=== PATIENT | female | born 1995 | race Caucasian/White ===

== ENCOUNTER 2020-02-27 16:12 | Outpatient (CLI) | payer OTHER ==
--- NOTE | 2020-02-27 17:00 | Non Stress Test Report ---
Non Stress Test Datetime Report Generated by CPN: 02/27/2020 17:00 DEMOGRAPHIC EGA NST: 40.5 INDICATION Indication for Study (NST) Other: Repeat NST VITAL SIGNS Temperature - NST: 98.3 Pulse - NST: 103 RESP - NST: 18 NBPSYS NST: 111 NBPDIA NST: 83 MONITORING Monitor Explained: Monitor Explained; Test Explained; Patient Verbalized Understanding Time on Monitor: 02/27/2020 16:26 Time off Monitor: 02/27/2020 16:46 NST Duration: 20 NST INTERVENTIONS NST Interventions: PO Hydration Physician Notified NST: Elaina Rosario CNM BABY A: [id number] Movement : Present Contraction Frequency : 2-4 FHR Baseline : 125 Accelerations : 15X15 Decelerations : None Variability : Moderate 6-25bpm NST Review: Meets Criteria for Reactive NST NST Review and Verified By : Lili Corey RN/Elaina Arriaza RN NST Results: Reactive NST REPORT Report Trigger: Send Report
== END 2020-02-27 17:30 | disposition home or self-care (01) ==
LOC: LC 16:12
PROVIDERS: ATTEND Obstetrics & Gynecology Gynecology
DX: O47.1 False labor at or after 37 completed weeks of gestation (principal); O48.0 Post-term pregnancy; Z3A.40 40 weeks gestation of pregnancy
CPT/HCPCS: 84112

== ENCOUNTER 2020-03-01 11:58 | Inpatient (IN) | payer OTHER ==
[2020-03-01 12:23] LABS: APPEARANCE,URINE SLIGHTLY-CLOUDY; BILIRUBIN,URINE NEGATIVE (NEGATIVE); COLOR,URINE YELLOW; GLUCOSE, URINE NEGATIVE (NEGATIVE); KETONES,URINE NEGATIVE (NEGATIVE); LEUKOCYTE ESTERASE,URINE LARGE (NEGATIVE); NITRITE,URINE NEGATIVE (NEGATIVE); PROTEIN,URINE NEGATIVE (NEGATIVE); URINE SPECIFIC GRAVITY 1.005; UROBILINOGEN,URINE NEGATIVE mg/dL (<2.0)
[2020-03-01 12:42] LABS: URINE AMPHETAMINES SCREEN NEGATIVE; URINE BARBITURATES SCREEN NEGATIVE; URINE BENZODIAZEPINES SCREEN NEGATIVE; URINE COCAINE SCREEN NEGATIVE; URINE MARIJUANA (THC) SCREEN NEGATIVE; URINE METHADONE SCREEN NEGATIVE; URINE PHENCYCLIDINE SCREEN NEGATIVE
[2020-03-01] MEDS ORDERED: PENICILLIN G POTASSIUM 5,000,000 UNIT in DEXTROSE 5%-WATER 100 ML IV ONE (12:49)
[2020-03-01] MEDS ORDERED: RINGERS SOLUTION,LACTATED 1,000 ML IV PRN (12:49)
[2020-03-01] MEDS ORDERED: OXYTOCIN/0.9 % SODIUM CHLORIDE 30 UNIT/500 ML RTUINJ IV PRN ×2 (12:51→18:22)
[2020-03-01] MEDS ORDERED: OXYTOCIN 10 UNIT/ML VIAL ONE (13:09)
[2020-03-01] MEDS ORDERED: MISOPROSTOL 0.2 MG TABLET ONE (13:10)
[2020-03-01] MEDS ORDERED: LIDOCAINE 1% INJ-PF (10 MG/ML) 30 ML SDV ONE (13:10)
[2020-03-01] MEDS ORDERED: PENICILLIN G-K 5 MILLION UNIT VIAL ONE ×2 (13:10→16:56)
[2020-03-01] MEDS ORDERED: OXYTOCIN/0.9 % SODIUM CHLORIDE 30 UNIT/500 ML RTUINJ ONE (13:10)
[2020-03-01 13:45] LABS: ABSOLUTE EOSINOPHILS # (AUTO) 0.1 10^3/uL (0.0-0.6); ABSOLUTE LYMPHOCYTES (AUTO) 2.9 10^3/uL (0.5-4.7); ABSOLUTE NEUT (AUTO) 9.2 10^3/uL (1.7-8.2); BASOPHILS % (AUTO) 0.3 % (0-2); EOSINOPHILS % (AUTO) 0.6 % (0-6); HEMOGLOBIN 10.1 g/dL (12.0-15.5); MEAN CORPUSCULAR HEMOGLOBIN 25.7 pg (27.0-33.4); MEAN CORPUSCULAR HGB CONC 33.8 g/dL (32.0-36.0); MEAN CORPUSCULAR VOLUME 76 fl (80-97); MONOCYTES % (AUTO) 7.4 % (3-13); PLATELET COUNT 277 10^3/uL (150-450); RED BLOOD COUNT 3.93 10^6/uL (3.72-5.28); SEGMENTED NEUTROPHILS % (AUTO) 69.7 % (42-78); TOTAL CELLS COUNTED % (AUTO) 100 %; WHITE BLOOD COUNT 13.2 10^3/uL (4.0-10.5)
[2020-03-01] MEDS ORDERED: ONDANSETRON HCL INJ/PF 4 MG/2 ML SDV IV ONE (13:48)
[2020-03-01] MEDS ORDERED: ONDANSETRON HCL INJ/PF 4 MG/2 ML SDV ONE (13:51)
[2020-03-01] MEDS ORDERED: ROPIVACAINE HCL 0.2% INJ/PF (2 MG/ML) 20 ML SDV ONE (15:43)
[2020-03-01] MEDS ORDERED: EPHEDRINE SULFATE INJ 50 MG/1 ML AMPULE ONE (15:43)
[2020-03-01] MEDS ORDERED: FENTANYL/BUPIVACAINE/NS/PF 300 MCG/150 ML RTUINJ EPI ONE (15:43)
[2020-03-01] MEDS ORDERED: FENTANYL CITRATE INJ/PF 100 MCG/2 ML AMPUL ONE (15:43)
--- NOTE | 2020-03-01 16:36 | Admission Physical ---
Datetime Report Generated by CPN: 03/01/2020 16:36 CURRENT ADMISSION Chief Complaint: Uterine Contractions Indication for Induction: Not Applicable Admit Impression : Term, Intrauterine ; Ruptured Membranes Admit Plan: Admit to Unit ALLERGIES Medication Allergies: No Medication Allergies: No Known Allergies (02/27/2020) Latex: No Latex Allergies OBSTETRICAL HISTORY EDC: 02/22/2020 00:00 : 2 Para: 1 Term: 1 : 0 SAB: 0 IAB: 0 Ectopic: 0 Livin Cesareans: 0 VBACs: 0 Multiple Births: 0 Gestational Diabetes: No Rh Sensitization: No Incompetent Cervix: No HEIDY: No Infertility: No ART Treatment: No Uterine Anomaly: No IUGR: No Hx Previous C/S: No Macrosomia: No Hx Loss/Stillborn: No PIH: No Hx : No Placenta Previa/Abruption: No Depression/PP Depression: No PTL/PROM: No Post Hemorrhage: No Obstetrical History Comments: G1: 39 wks, 8lbs 1 oz, vag male SEE RECORDS Alcohol: No Marijuana : No Cocaine: No Other Illicit Drugs: No Cigarettes: Never Smoker. [id number] MEDICAL HISTORY Diabetes: No Blood Transfusion: No Pulmonary Disease (Asthma, TB): No Breast Disease: No Hypertension: No Display Coordinator Surgery: No Heart Disease: No Hosp/Surgery: No Autoimmune Disorder: No Anesthetic Complications: No Kidney Disease: No Abnormal Pap Smear: No Neuro/Epilepsy: No Psychiatric Disorders: No Other Medical Diseases: No Hepatitis/Liver Disease: No Significant Family History: No Varicosities/Phlebitis: No Trauma/Violence : No Thyroid Dysfunction: No INFECTIOUS HISTORY Gonorrhea: No Genital Herpes: No Chlamydia: No Tuberculosis: No Syphilis: No Hepatitis: No HIV/AIDS Exposure: No Rash or Viral Illness: No HPV: No PHYSICAL EXAM General: Normal HEENT: Normal Neurologic: Normal Thyroid: Normal Heart: Normal Lungs: Normal Breast: Deferred Back: Normal Abdomen: Normal Genitourinary Exam: Normal Extremities: Normal DTRs: Normal Pelvic Type: Adequate Vital Signs: Reviewed VAGINAL EXAM Dilatation: 6 Effacement: 80 Station: 0 MEMBRANES Pooling: Positive Membranes: Ruptured FETUS A EGA: 41.1 Monitoring: External US FHR- Baseline: 120 Variability: Moderate 6-25bpm Decelerations: None FHR Category: Category I Estimated Weight (gm): 4280 Presentation: Vertex Admit Comment: admit for labor. not GDM PLANS FOR LABOR AND DELIVERY Labor and Delivery: None Pain Management: Medications; Epidural Feeding Preference: Breast Benefit of Breast Feed Discussed: Yes Circumcision: Yes INFORMED CONSENT Signature: with User ID: [email or web address]
[2020-03-01] MEDS ORDERED: PENICILLIN G POTASSIUM 2,500,000 UNIT in DEXTROSE 5%-WATER 50 ML IV SCH ×4 (16:50)
[2020-03-01] MEDS ORDERED: MEASLES,MUMPS&RUBELLA VACC/PF 0.5 ML VIAL SUBCUT PRN (18:22)
[2020-03-01] MEDS ORDERED: DIBUCAINE 1% OINTMENT 28 GM TP PRN (18:22)
[2020-03-01] MEDS ORDERED: DIPH/PERTUSS(ACELL)/TETANUS VAC/PF 0.5 ML SYR (>=10YO) IM PRN (18:22)
[2020-03-01] MEDS ORDERED: PROMETHAZINE HCL 25 MG SUPP.RECT PR PRN (18:22)
[2020-03-01] MEDS ORDERED: ACETAMINOPHEN 650 MG SUPP.RECT PR PRN (18:22)
[2020-03-01] MEDS ORDERED: ACETAMINOPHEN WITH CODEINE #3 TABLET PO PRN ×2 (18:22)
[2020-03-01] MEDS ORDERED: PROMETHAZINE HCL 25 MG TABLET PO PRN (18:22)
[2020-03-01] MEDS ORDERED: PROMETHAZINE HCL INJ 25 MG/1 ML VIAL IV PRN (18:22)
[2020-03-01] MEDS ORDERED: DIPHENHYDRAMINE HCL 25 MG CAPSULE PO PRN (18:22)
[2020-03-01] MEDS ORDERED: MAGNESIUM HYDROXIDE SUSP 30 ML UDCUP PO PRN (18:22)
[2020-03-01] MEDS ORDERED: BENZOCAINE/MENTHOL AEROSOL SPRAY 56 ML TOP PRN (18:22)
[2020-03-01] MEDS ORDERED: ZOLPIDEM TARTRATE 5 MG TABLET PO PRN (18:22)
[2020-03-01] MEDS ORDERED: GLYCERIN/WITCH HAZEL LEAF 1 EACH MED..WIPE TP PRN (18:22)
[2020-03-01] MEDS ORDERED: NA PHOS,M-B/NA PHOS,DI-BA (ADULT) 133 ML ENEMA PR PRN (18:22)
[2020-03-01] MEDS ORDERED: PSEUDOEPHEDRINE HCL 30 MG TABLET PO PRN (18:22)
--- NOTE | 2020-03-01 18:25 | Warning Signs in Babies ---
VOD Warning Signs Datetime Report Generated by [facility]: 03/01/2020 18:25 VOD#[id number] -Warning Signs in Babies: Needs to be viewed. (02/27/2020 16:32:Rianna Michele RN)
[2020-03-01] MEDS ORDERED: BENZOCAINE/MENTHOL AEROSOL SPRAY 56 ML ONE (18:39)
--- NOTE | 2020-03-01 20:08 | Delivery Summary ---
Del Sum A-C Datetime Report Generated by CPN: 03/01/2020 20:07 DELIVERY PERSONNEL DELIVERY PERSONNEL: [id number] Delivery Doctor:: Zachary Thomson MD Labor and Delivery Nurse:: Roya Hutchinson RNscalping machine operator Nurse:: Mansi Johnson RN Fire Patroller/LICENSE AND PERMIT SPECIALIST: Denise Gutiérrez CST Fire Patroller/LICENSE AND PERMIT SPECIALIST: Milagros Waldron CST Additional Personnel: : Rianna Michele RN MATERNAL INFORMATION Delivery Anesthesia: Epidural Medications After Delivery: Pitocin 30 Units in 500ml NS/D5W Delivery QBL: 250 Maternal Complications: None LABOR SUMMARY EDC: 02/22/2020 00:00 No. Babies in Womb: 1 Attempted: No Labor Anesthesia: Epidural LABOR INFORMATION Reason for Induction: Not Applicable Onset of Labor: 03/01/2020 16:15 Complete Dilatation: 03/01/2020 17:55 Oxytocin: Augmentation Group B Beta Strep: Positive Antibiotics # of Doses: 2 Antibiotics Time of Last Dose: 03/01/2020 17:04 Name of Antibiotic Given: PCN Steroids Given: None Reason Steroids Not Administered: Not Applicable MEMBRANES Membranes Rupture Method: Spontaneous Rupture of Membranes: 03/01/2020 09:30 Length of Rupture (hr): 8.58 Amniotic Fluid Color: Clear Amniotic Fluid Amount: Moderate Amniotic Fluid Odor: None STAGES OF LABOR Stage 1 hr: 1 Stage 1 min: 40 Stage 2 hr: 0 Stage 2 min: 10 Stage 3 hr: 0 Stage 3 min: 4 Total Time in Labor hr: 1 Total Time in Labor min: 54 VAGINAL DELIVERY Episiotomy: None Laceration #1: Perineal Laceration Extension #1: Second Degree Laceration #2: None Laceration Extension #2: N/A Laceration #3: None Laceration Extension #3: N/A Laceration Repair: Yes Laceration Repair Note: repair of second degree perineal laceration with 3-0 chromic in usual fashion. Sponge Count Correct: Yes Sharps Count Correct: Yes CSECTION DELIVERY Primary Indication: N/A Secondary Indication: N/A CSection Incidence: N/A Labor: N/A Elective: N/A CSection Incision: N/A BABY A INFORMATION Infant Delivery Date/Time: 03/01/2020 18:05 Method of Delivery: Vaginal Nurse Controlled Delivery: No Born in Route : No : N/A Forceps: N/A Vacuum Extraction: N/A Shoulder Dystocia : No PRESENTATION/POSITION BABY A Presentation: Cephalic Cephalic Presentation: Vertex Vertex Position: Left Occipital Anterior Breech Presentation: N/A PLACENTA INFORMATION BABY A Placenta Delivery Time : 03/01/2020 18:09 Placenta Method of Delivery: Spontaneous Placenta Status: Delivered SCORES BABY A Heart Rate 1 min: >100 bpm Resp Effort 1 min: Good Cry Reflex Irritability 1 min: Cough or Sneeze or Pulls Away Muscle Tone 1 min: Active Motion Color 1 min: Blue/Pale Resuscitation Effort 1 min: Tactile Stimulation SCORE 1 MIN: 8 Heart Rate 5 min: >100 bpm Resp Effort 5 min: Good Cry Reflex Irritability 5 min: Cough or Sneeze or Pulls Away Muscle Tone 5 min: Active Motion Color 5 min: Body Devers, Extremities Blue Resuscitation Effort 5 min: Tactile Stimulation SCORE 5 MIN: 9 INFORMATION BABY A Gestational Age at Delivery: 41.1 Gestational Status: Late Term- 41- 41.6 Weeks Outcome : Liveborn Infant Condition : Stable Infant Sex: Male IDENTIFICATION BABY A Verification Date/Time: 03/01/2020 18:14 ID Band Number: [id number] Mother's Name Verified: Yes Infant RN Verifying : CMel Stevens[place]au[place] RN ; BMel Johnson RN WEIGHT/LENGTH BABY A Birthweight (gm): 3937 Weight (lb): 8 Infant Weight (oz): 11 Length (in): 20.50 Infant Length (cm): 52.07 CORD INFORMATION BABY A No. Cord Vessels: 3 Nuchal Cord : Around Neck x1, Loose Cord Blood Taken: Yes-For Eval (Mom's Blood Type - or O+) Infant Suction: None ASSESSMENT BABY A Infant Complications: None Physical Findings at Delivery: Within Normal Limits Respirations: Appears Normal Skin to Skin: Yes Office Assistant/ALS Called : No Care By: B Baidy RN Transferred To: Remains with Mother BABY B INFORMATION : N/A SIGNATURES Signature: with User ID: [email or web address]
--- NOTE | 2020-03-01 20:08 | Birth Certificate Data ---
Cert Data Datetime Report Generated by CPFani: 03/01/2020 20:07 CERTIFICATE DATA 47a. Care: Yes (02/27/2020 16:32:Roya Hutchinson RN) 47b. Date of First Visit: 07/19/2019 00:00 (02/27/2020 16:32:Roya Hutchinson RN) 47c. Date of Last Visit: 02/27/2020 00:00 (02/27/2020 16:32:Roya Hutchinson RN) 47d. Number of Visits: 14 (02/27/2020 16:32:Roya Hutchinson RN) 48a. Number of Prev Live Births: 1 (02/27/2020 16:32:Soila Corey RN) 48b. Now Livin (02/27/2020 16:32:Soila Corey RN) 48c. Live Births Now : 0 (02/27/2020 16:32:QS system process) 48d. Date of Last Live : 09/06/2018 00:00 (02/27/2020 16:32:Roya Hutchinson RN) 48e. Losses: 0 (02/27/2020 16:32:Roya Hutchinson RN) RISK FACTORS IN THIS 49a. Diabetes: No (02/27/2020 16:32:Roya Hutchinson RN) 49b. Hypertension: No (02/27/2020 16:32:Roya Hutchinson RN) 49c. Previous Births: 0 (02/27/2020 16:32:Soila Corey RN) 49d. Stillborns: No (02/27/2020 16:32:Roya Hutchinson RN) 49d. IUGR: No (02/27/2020 16:32:Roya Hutchinson RN) 49e. Infertility Treatment: No (02/27/2020 16:32:Roya Hutchinson RN) 49f. Previous Cesareans: 0 (02/27/2020 16:32:Soila Corey RN) Mother's Height 50b. Height Inches: 64 (03/01/2020 12:06:QS system process) Mother's Weight 51a. Pre- Weight (lbs): 117 (02/27/2020 16:32:Roya Hutchinson RN) 51b. Weight at Delivery (lbs): 143 (03/01/2020 12:06:QS system process) 52. Dt Last Normal Menses Began: 05/18/2019 00:00 (02/27/2020 16:32:Soila Corey RN) Infections Present/Treated 53a. Gonorrhea: No (02/27/2020 16:32:Roya Hutchinson RN) Results this Hospital Visit : Negative (02/27/2020 16:32:Soila Corey RN) 53b. Syphilis: No (02/27/2020 16:32:Roya Hutchinson RN) 53c. Chlamydia: No (02/27/2020 16:32:Roya Hutchinson RN) Results this Hospital Visit: Negative (02/27/2020 16:32:Soila Corey RN) 53d. Hepatitis B: No (02/27/2020 16:32:Roya Hutchinson RN) Results this Hospital Visit: Negative (02/27/2020 16:32:Soila Corey RN) 53e. Hepatitis C: Negative (02/27/2020 16:32:Roya Hutchinson RN) 53h. Mother Tested for HBsAG: Yes (02/27/2020 16:32:Roya Hutchinson RN) 53i. Date Tested: 07/19/2019 00:00 (02/27/2020 16:32:Roya Hutchinson RN) 53j. Test Result: Negative (02/27/2020 16:32:Soila Corey RN) Cigarette Smoking Cigarette Smoking: Never Smoker. [id number] (02/27/2020 16:32:Roya Hutchinson RN) Onset of Labor 56a. PROM >12 Hrs: 8.58 (02/27/2020 16:32:QS system process) 56b. Precipitous Labor <3 Hrs: 1 (02/27/2020 16:32:QS system process) 56c. Prolonged Labor > 20 Hrs: 1 (02/27/2020 16:32:QS system process) 57a. Induction of Labor: Augmentation (02/27/2020 16:32:Rianna Michele RN) 57c. Non-Vertex Presentation A: Vertex (02/27/2020 16:32:Rianna Michele RN) 57d. Steroids - Lung Mat: None (02/27/2020 16:32:Rianna Michele RN) 57d. Steroids - Lung Mat: Not Applicable (02/27/2020 16:32:Rianna Michele RN) 57e. Antibiotics During Labor: 03/01/2020 17:04 (02/27/2020 16:32:Mansi Johnson RN) 57g. Moderate/Heavy Meconium: Clear (02/27/2020 16:32:Roya Hutchinson RN) 57h. Intolerance of Labor: N/A (02/27/2020 16:32:Rianna Michele RN) : N/A (02/27/2020 16:32:Rianna Michele RN) 57i. Epidural/Spinal Anesthesia: Epidural (02/27/2020 16:32:Rianna Michele RN) Method of Delivery 58a. Forceps - Unsuccessful A: N/A (02/27/2020 16:32:Rianna Michele RN) 58b. Vacuum - Unsuccessful A: N/A (02/27/2020 16:32:Rianna Michele RN) 58c. Presentation at 58c. Presentation at - A : Vertex (02/27/2020 16:32:Rianna Michele RN) 58c. Presentation at - A : N/A (02/27/2020 16:32:Rianna Michele RN) 58c. Presentation at - A : Cephalic (03/01/2020 16:15:Roya Hutchinson RN) Final Route and Method of Del 58d. Baby A Route/Delivery: Vaginal (03/01/2020 18:04:Roya Hutchinson RN) 58e. Trial of Labor Attempted: No (02/27/2020 16:32:Rianna Michele RN) 58e. Trial of Labor Attempted A: N/A (02/27/2020 16:32:Rianna Michele RN) 58e. Trial of Labor Attempted B: N/A (02/27/2020 16:32:Rianna Michele RN) Maternal Morbidity 59b. 3rd or 4th Degree Lacs: Perineal (02/27/2020 16:32:Rianna Michele RN) Birthweight Baby A: 3937 (02/27/2020 16:32:Paula Lubin RN) 60a. Pounds : 8 (02/27/2020 16:32:QS system process) 60b. Ounces: 11 (02/27/2020 16:32:QS system process) 61. GA at Delivery Baby A: 41.1 (02/27/2020 16:32:Riannakaren Michele RN) : Late Term- 41- 41.6 Weeks (02/27/2020 16:32:QS system process) 62a. 5 Minute Baby A: 9 (02/27/2020 16:32:QS system process)
[2020-03-01] MEDS: IBUPROFEN 800 MG TABLET PO SCH (22:20)
[2020-03-01] MEDS: FAMOTIDINE 20 MG TABLET PO SCH (22:21)
[2020-03-02 06:28] LABS: HEMATOCRIT 26.1 % (36.0-47.0); HEMOGLOBIN 8.8 g/dL (12.0-15.5); MEAN CORPUSCULAR HEMOGLOBIN 25.8 pg (27.0-33.4); MEAN CORPUSCULAR HGB CONC 33.7 g/dL (32.0-36.0); MEAN CORPUSCULAR VOLUME 77 fl (80-97); PLATELET COUNT 248 10^3/uL (150-450); RED BLOOD COUNT 3.41 10^6/uL (3.72-5.28); WHITE BLOOD COUNT 13.3 10^3/uL (4.0-10.5)
[2020-03-02] MEDS: IBUPROFEN 800 MG TABLET PO SCH ×3 (06:32→21:09)
[2020-03-02] MEDS: FAMOTIDINE 20 MG TABLET PO SCH ×2 (09:14→21:11)
[2020-03-02] MEDS: SENNOSIDES/DOCUSATE 8.6-50 MG 1 EACH TABLET PO SCH (09:14)
[2020-03-02] MEDS: DOCUSATE SODIUM 100 MG CAPSULE PO SCH ×2 (09:14→17:04)
[2020-03-02] MEDS: FERROUS SULFATE 325 MG TABLET PO SCH ×2 (09:14→17:04)
[2020-03-02] MEDS: PRENATAL VITAMIN W DHA CAPSULE PO SCH (09:14)
--- NOTE | 2020-03-02 09:57 | PDOC PROGRESS REPORT ---
Subjective-OB Progress Note for:: 03/02/20 Subjective: Pt doing well, no concerns. She reports light bleeding, reg diet and voiding w/o difficulty. Physical Exam (OB) Vital Signs: Temp Pulse Resp BP Pulse Ox 99.0 F 72 18 108/56 L 98 03/02/20 08:07 03/01/20 21:07 03/01/20 21:07 03/01/20 21:07 03/01/20 21:07 Intake & Output 03/01/20 03/02/20 03/03/20 06:59 06:59 06:59 Intake Total 1600 Output Total 1000 Balance 600 Weight 65 kg - PIH/Pre-Eclampsia Headache: Absent Epigastric Pain: No Visual Changes: No - Maternal Morbidity 59. Maternal Morbidity (serious complications experinced by the mother associated with labor and delivery: None of the above - Lochia Lochia Amount: Small 10-25 ml Lochia Color: Rubra/Red - Abdomen Description: Soft, Round Fundal Description: Firm, Non-Midline Fundal Height: u/u - u/2 Objective-Diagnostic Laboratory: 03/02/20 06:18 03/01/20 03/01/20 03/01/20 12:06 13:12 13:12 WBC 13.2 H RBC 3.93 Hgb 10.1 L Hct 30.0 L MCV 76 L MCH 25.7 L MCHC 33.8 RDW 17.0 H Plt Count 277 Seg Neutrophils % 69.7 Urine Color YELLOW Urine Appearance SLIGHTLY-CLOUDY Urine pH 7.0 Ur Specific [place] 1.005 Urine Protein NEGATIVE Urine Glucose (UA) NEGATIVE Urine Ketones NEGATIVE Urine Blood LARGE H Urine Nitrite NEGATIVE Ur Leukocyte Esterase LARGE H Blood Type AB NEGATIVE Antibody Screen NEGATIVE 03/02/20 06:18 WBC 13.3 H RBC 3.41 L Hgb 8.8 L Hct 26.1 L MCV 77 L MCH 25.8 L MCHC 33.7 RDW 17.0 H Plt Count 248 Seg Neutrophils % Urine Color Urine Appearance Urine pH Ur Specific [place] Urine Protein Urine Glucose (UA) Urine Ketones Urine Blood Urine Nitrite Ur Leukocyte Esterase Blood Type Antibody Screen Assessment and Plan(PN) - Assessment and Plan (1) Vaginal delivery Is this a current diagnosis for this admission?: Yes - Time Spent with Patient Time with patient: Less than 15 minutes Medications reviewed and adjusted accordingly: Yes - Disposition Anticipated Discharge Disposition: Home, Self Care Anticipated Discharge Timeframe: within 24 hours
[2020-03-03] MEDS: IBUPROFEN 800 MG TABLET PO SCH (05:39)
[2020-03-03] MEDS: FERROUS SULFATE 325 MG TABLET PO SCH (09:17)
[2020-03-03] MEDS: PRENATAL VITAMIN W DHA CAPSULE PO SCH (09:17)
[2020-03-03] MEDS: SENNOSIDES/DOCUSATE 8.6-50 MG 1 EACH TABLET PO SCH (09:17)
[2020-03-03] MEDS: DOCUSATE SODIUM 100 MG CAPSULE PO SCH (09:17)
[2020-03-03] MEDS: FAMOTIDINE 20 MG TABLET PO SCH (09:17)
--- NOTE | 2020-03-03 12:31 | PDOC DISCHARGE SUMMARY ---
Impression - Admit/DC Date/PCP Admission Date/Primary Care Provider: 03/01/20 13:10 ANA العراقي MD Discharge Date: 03/03/20 - PP Day #2, doing well, no complaints, AB negative, - Discharge Diagnosis (1) Acute blood loss anemia Is this a current diagnosis for this admission?: Yes (2) Normal course Is this a current diagnosis for this admission?: Yes (3) Vaginal delivery Is this a current diagnosis for this admission?: Yes - Additional Information Resuscitation Status: Full Code Discharge Diet: As Tolerated, Regular Discharge Activity: Activity As Tolerated, No Lifting Over 10 Pounds, Pelvic Rest Referrals: ANA العراقي MD [Primary Care Provider] - Prescriptions: Ferrous Sulfate [Feosol 325 mg Tablet] 325 mg PO BID #60 tablet Ibuprofen [Motrin 800 mg Tablet] 800 mg PO Q8 #60 tablet Home Medications: Pnv No.95/Ferrous Fum/Folic AC [ Caplet] 1 each PO DAILY 02/27/20 Ferrous Sulfate [Feosol 325 mg Tablet] 325 mg PO BID #60 tablet 03/03/20 Ibuprofen [Motrin 800 mg Tablet] 800 mg PO Q8 #60 tablet 03/03/20 HPI Reason(s) for Admission: Onset of Labor Procedures: Ultrasound Intrapartum Procedure(s): Spontaneous Vaginal Delivery Hospital Course 59. Maternal Morbidity (serious complications experinced by the mother associated with labor and delivery: None of the above Results Laboratory Results: WBC 13.3 10^3/uL (4.0-10.5) H 03/02/20 06:18 RBC 3.41 10^6/uL (3.72-5.28) L 03/02/20 06:18 Hgb 8.8 g/dL (12.0-15.5) L 03/02/20 06:18 Hct 26.1 % (36.0-47.0) L 03/02/20 06:18 MCV 77 fl (80-97) L 03/02/20 06:18 MCH 25.8 pg (27.0-33.4) L 03/02/20 06:18 MCHC 33.7 g/dL (32.0-36.0) 03/02/20 06:18 RDW 17.0 % (11.5-14.0) H 03/02/20 06:18 Plt Count 248 10^3/uL (150-450) 03/02/20 06:18 Lymph % (Auto) 22.0 % (13-45) 03/01/20 13:12 [place] % (Auto) 7.4 % (3-13) 03/01/20 13:12 Eos % (Auto) 0.6 % (0-6) 03/01/20 13:12 Baso % (Auto) 0.3 % (0-2) 03/01/20 13:12 Absolute Neuts (auto) 9.2 10^3/uL (1.7-8.2) H 03/01/20 13:12 Absolute Lymphs (auto) 2.9 10^3/uL (0.5-4.7) 03/01/20 13:12 Absolute Monos (auto) 1.0 10^3/uL (0.1-1.4) 03/01/20 13:12 Absolute Eos (auto) 0.1 10^3/uL (0.0-0.6) 03/01/20 13:12 Absolute Basos (auto) 0.0 10^3/uL (0.0-0.2) 03/01/20 13:12 Seg Neutrophils % 69.7 % (42-78) 03/01/20 13:12 Neonat Total Bilirubin Cancelled 03/02/20 18:00 Neonat Direct Bilirubin Cancelled 03/02/20 18:00 Neonat Indirect Bili Cancelled 03/02/20 18:00 Urine Color YELLOW 03/01/20 12:06 Urine Appearance SLIGHTLY-CLOUDY 03/01/20 12:06 Urine pH 7.0 (5.0-9.0) 03/01/20 12:06 Ur Specific [place] 1.005 03/01/20 12:06 Urine Protein NEGATIVE mg/dL (NEGATIVE) 03/01/20 12:06 Urine Glucose (UA) NEGATIVE mg/dL (NEGATIVE) 03/01/20 12:06 Urine Ketones NEGATIVE mg/dL (NEGATIVE) 03/01/20 12:06 Urine Blood LARGE (NEGATIVE) H 03/01/20 12:06 Urine Nitrite NEGATIVE (NEGATIVE) 03/01/20 12:06 Urine Bilirubin NEGATIVE (NEGATIVE) 03/01/20 12:06 Urine Urobilinogen NEGATIVE mg/dL (<2.0) 03/01/20 12:06 Ur Leukocyte Esterase LARGE (NEGATIVE) H 03/01/20 12:06 Urine Ascorbic Acid NEGATIVE (NEGATIVE) 03/01/20 12:06 Membranes Rupture POSITIVE (NEGATIVE) H 03/01/20 12:26 Urine Opiates Screen NEGATIVE 03/01/20 12:06 Urine Methadone Screen NEGATIVE 03/01/20 12:06 Ur Barbiturates Screen NEGATIVE 03/01/20 12:06 Ur Phencyclidine Scrn NEGATIVE 03/01/20 12:06 Ur Amphetamines Screen NEGATIVE 03/01/20 12:06 U Benzodiazepines Scrn NEGATIVE 03/01/20 12:06 Urine Cocaine Screen NEGATIVE 03/01/20 12:06 U Marijuana (THC) Screen NEGATIVE 03/01/20 12:06 RPR NONREACTIVE (NONREACTIVE) 03/01/20 13:12 Blood Type AB NEGATIVE 03/02/20 06:18 Antibody Screen NEGATIVE 03/01/20 13:12 Direct Antiglob Test Cancelled 03/02/20 18:00 Screen NEGATIVE 03/02/20 06:18 Plan Health Concerns: iron rich foods Plan of Treatment: d/c home, f/up with [facility] in 4 wks
[2020-03-03 12:46] VITALS: BP 113/73
== END 2020-03-03 14:15 | disposition home or self-care (01) | DRG 807 ==
LOC: LC 11:58 → LR 13:10 → 2S 20:34
PROVIDERS: ADMIT Obstetrics & Gynecology; ATTEND Obstetrics & Gynecology
PROC: 10E0XZZ Delivery of Products of Conception, External Approach (ICD-10-PCS; principal; 2020-03-01)
PROC: 0KQM0ZZ Repair Perineum Muscle, Open Approach (ICD-10-PCS; 2020-03-01)
PROC: 3E0234Z Introduction of Serum, Toxoid and Vaccine into Muscle, Percutaneous Approach (ICD-10-PCS; 2020-03-02)
DX: O70.1 Second degree perineal laceration during delivery (principal); Z37.0 Single live birth; O69.81X0 Labor and delivery complicated by cord around neck, without compression, not applicable or unspecified; Z3A.41 41 weeks gestation of pregnancy; O26.893 Other specified pregnancy related conditions, third trimester; Z67.31 Type AB blood, Rh negative; O99.02 Anemia complicating childbirth; D64.9 Anemia, unspecified
CPT/HCPCS: 1967; 36415; 80307; 81005; 84112; 85025; 85027; 85461; 86592; 86850; 86900; 86901; J2405; J2540; J2590; J2790; J2795; J3010; J3490; J7060